=== PATIENT | female | born 1990 | race Caucasian/White ===

== ENCOUNTER 2022-04-26 08:00 | Outpatient (CLI) | payer OTHER ==
--- NOTE | 2022-04-27 08:25 | XRAY Report ---
PROCEDURE: Finger(s) RT INDICATIONS: R 2ND DIGIT PX TECHNIQUE: AP hand, 2 views of the second finger(s) acquired. COMPARISON: None FINDINGS: Bones: No fractures or dislocations. No suspicious bony lesions. Soft tissues: No suspicious soft tissue calcifications. IMPRESSION: No acute osseous abnormalities. If clinical symptoms persist, a follow-up exam may be obtained in 7-10 days.. Reviewed by: Marco A Salinas MD on 04/27/2022 8:23 AM PDT Approved by: Marco A Salinas MD on 04/27/2022 8:23 AM PDT Station ID: [id number]
== END 2022-04-26 23:59 | disposition home or self-care (01) ==
LOC: DI.N 08:00
PROVIDERS: ATTEND Physician Assistant
DX: S60.121A Contusion of right index finger with damage to nail, initial encounter (principal)